=== PATIENT | male | born 2000 | race Two or more races ===

== ENCOUNTER → 2023-04-20 | Emergency (ER) | payer OTHER ==
[~2023-04-20] VITALS: Ht 157.5 cm; Wt 52.6 kg
== END | disposition home or self-care (01) ==
LOC: ER 07:17
DX: S50.11XA Contusion of right forearm, initial encounter (principal); X58.XXXA Exposure to other specified factors, initial encounter; Y93.89 Activity, other specified; Y92.832 Beach as the place of occurrence of the external cause; Y99.9 Unspecified external cause status